=== PATIENT | male | born 1960 | race Caucasian/White ===

== ENCOUNTER 2016-08-27 08:13 | Emergency (ER) | payer OTHER ==
--- NOTE | 2016-08-27 10:03 | DIAGNOSTIC IMAGING REPORT ---
PROCEDURE: CT CERVICAL SPINE W/O CONTRAST INDICATION: TRAUMA/INJURY TECHNIQUE: Axial CT images were obtained through the cervical spine. Coronal and sagittal reformations were created. No comparison. COMPARISON: None. FINDINGS: The craniocervical junction is intact. Degenerative joint space loss, spurring, and subcortical cystic change at the atlantodental interval. The cervical vertebral bodies are normal in height without evidence of fracture. Right-sided disc osteophyte complex at C4 and C5. Uncovertebral joint hypertrophy at the C5-6 level. Severe facet arthropathy, left greater than right at the C6-7 level. Moderate right bony foraminal narrowing at C4-5, and mild left, and severe right foraminal narrowing at C5-6. Mild to moderate left foraminal narrowing at C6-7. The alignment and disk spacing is normal. The central canal is patent. No prevertebral or paravertebral soft-tissue swelling or mass. Patent airway and normal lung apices. IMPRESSION: 1. Intact cervical spine. 2. Chronic-appearing endplate and facet changes as described resulting in multilevel foraminal narrowing, most extensive on the right at C5-6. 3. Findings called to the emergency room. All CT scans at this facility use dose modulation, iterative reconstruction, and/or weight-based dosing when appropriate to reduce radiation dose to as low as reasonably achievable.
--- NOTE | 2016-08-27 10:15 | DIAGNOSTIC IMAGING REPORT ---
PROCEDURE: CT LUMBAR SPINE W/O CONTRAST INDICATION: TRAUMA/INJURY TECHNIQUE: Thin slice axial CT images were obtained through the lumbar spine. Coronal and sagittal reformations were created. COMPARISON: None. FINDINGS: Five lumbar type vertebral bodies are present. No acute or chronic fractures. There is moderate endplate sclerosis, circumferential spurring, and extensive cortical irregularity at the L2-3 disc level, and to a lesser extent at the L5-S1 disc level. There are is mild endplate sclerosis at the L4-5 level. Mild rightward curvature of the lumbar spine with the apex at the L3 level and compensatory endplate spurring along the left. The AP alignment is normal. Mild disc height loss T12-L1 and L1-2. Moderate disc height loss with vacuum phenomenon at L3-4 and L4-5, and moderately severe disc height loss at L2-3 and L5-S1. Moderate facet hypertrophy at L4-5 where there is likely a moderate central canal stenosis. Facet hypertrophy is also present at L3-4 and likely a mild to moderate central canal stenosis. Diffuse circumferential disc osteophyte complex results in a moderate stenosis of the central canal at L3-4. Paraspinal soft tissues are within normal limits. No suspicious density within the spinal canal. Bridging osteophytosis along the superior aspect of the left sacroiliac joint. IMPRESSION: 1. No acute fractures. 2. Chronic endplate, disc, and facet degeneration at multiple levels mainly resulting in multilevel central canal narrowing as described. 3. Findings called to the emergency room.
--- NOTE | 2016-08-27 10:16 | DIAGNOSTIC IMAGING REPORT ---
PROCEDURE: CT HEAD WITHOUT CONTRAST INDICATION: TRAUMA/INJURY TECHNIQUE: Axial CT images were acquired through the head. Coronal and sagittal reformations were created. COMPARISON: None. FINDINGS: No intracranial hemorrhage or extraaxial fluid collections. Ventricles are normal in size, shape and position. There is no mass, mass effect or midline shift. The roberson-white matter differentiation is normal. There is no edema. Mild bifrontal cortical atrophy. The calvarium is intact. The paranasal sinuses and mastoid air cells are normally aerated. The extracranial soft tissues and orbits are normal. IMPRESSION: 1. No CT evidence of acute intracranial process. 2. Mild bifrontal cortical atrophy, slightly advanced for the patient's stated age. 3. Findings discussed with Dr. Townsend at [address] scans at this facility use dose modulation, iterative reconstruction, and/or weight-based dosing when appropriate to reduce radiation dose to as low as reasonably achievable.
--- NOTE | 2016-08-27 10:33 | ED NURSING NOTES ---
Clinical Report - Nurses [facility] [address] [place] [address] 08/27/2016 8:15 [id number] Triage time 08:17. Acuity: LEVEL 4. Chief Complaint: FALL. 08:19 08/27/16. 08:19 08/27/16. Alert. No acute distress. ( Pt fell while at work. Pt states he slipped on newly waxed floors.). SEPSIS SCREEN: Sepsis Screen. Negative (no infection suspected/documented). CHERELLE COMA SCORE: Cherelle Coma Scale: 15- eyes open spontaneously (4); best verbal response- oriented x 4 (5); best motor response- obeys commands (6). --08:27 Earle Crisostomo R.N. 08:18 08/27/16. BP: 144/75. HR: 68. RR: 18. O2 saturation: 97% on room air. Temp: 98.6 F (oral). Pain level now: 09/15. --08:27 Earle Crisostomo R.N. Weight: 130.1 kg stated. Height/Length: 73 inches Per Patient. BMI: 37.8. --08:17 Earle Crisostomo R.N. Medications Crestor Oral (weekly). --08:26 Earle Crisostomo R.N. ASA Oral 81mg , Daily. --08:26 Earle Crisostomo R.N. Medication/allergy information source: the patient and EMS. --08:27 Earle Crisostomo R.N. Allergies No Known Drug Allergy. --08:26 Earle Crisostomo R.N. History Arrived by EMS. Historian: patient. Accompanied by family. Primary physician ([facility]). 08:19 08/27/16. This occurred just prior to arrival. No loss of consciousness. No headache. 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 BP: 128 palp. HR: 84. RR: 16. O2 saturation: 99 % room air. ( Pt c-collared and back boarded at 0800 by EMS). PAST MEDICAL HX: Tetanus status: up-to-date. Immunizations: up-to-date. SOCIAL HX: Never smoker. No alcohol use or drug use. No infectious disease exposure. ABUSE ASSESSMENT: No report of abuse. FALL RISK ASSESSMENT: Fall risk assessment completed. No fall risk identified. NUTRITIONAL RISK ASSESSMENT: The nutritional risk assessment revealed no deficiencies. FUNCTIONAL ASSESSMENT: Functional assessment: no impairments noted. LEARNING NEEDS ASSESSMENT: The learning needs assessment revealed no barriers. SKIN INTEGRITY ASSESSMENT: Skin integrity risk assessment completed. No skin integrity risk identified. --08:27 Earle Crisostomo R.N. PROBLEMS: Laceration. Atrial Fibrillation. Environmental Allergies. Tetanus Status. A-fib. Hypertension. Allergies. --08:27 Earle Crisostomo R.N. Degenerative Joint Disease. --08:37 Earle Crisostomo R.N. ADDITIONAL SURGERIES: Knee Surgery. Shoulder Surgery. --08:27 Earle Crisostomo R.N. Assessment 08:08/27/16. --08:27 Earle Crisostomo R.N. Interventions 08:08/27/16. 08:08/27/16. ID and allergy band on patient. To treatment room. --08:27 Earle Crisostomo R.N. PHYSICAL ASSESSMENT 08:08/27/16. To room via stretcher. GENERAL / NEURO / PSYCH: Alert. Oriented X 4. Appears in pain. RESPIRATORY: Respirations not labored. CVS: Capillary refill less than 2 seconds. SKIN: Skin is warm and dry. BACK: Vertebral point tenderness over the lumbar spine. --08:25 Earle Crisostomo R.N. NURSING PROGRESS NOTES 08:08/27/16. Two patient identifiers checked. Call light placed in reach. Side rails up x 2. Bed placed in lowest position. Brakes of bed on. --08:25 Earle Crisostomo R.N. 08:08/27/16. Patient ready for evaluation- chart flagged and notification provided. --08:25 Earle Crisostomo R.N. 08:28 08/27/16. Pulse oximeter applied. library monitor applied. NIBP monitor applied. --08:28 Earle Crisostomo R.N. 08:34 08/27/16. --08:34 Earle Crisostomo R.N. 08:34 08/27/16. BP: 137/77. HR: 68. RR: 18. O2 saturation: 97% on room air. --08:34 Earle Crisostomo R.N. 08:34 08/27/16. Patient and family informed about reason for wait and about plan of care. --08:35 Earle Crisostomo R.N. 08:35 08/27/16. Patient waiting for CT to be done. --08:35 Earle Crisostomo R.N. 08:51 08/27/16. ( Pts at bedside and work friend, completing L and I paperwork). --08:51 Earle Crisostomo R.N. 08:54 08/27/16. ( C-collar intact, pt undressed). --08:54 Earle Crisostomo R.N. 08:54 08/27/16. Patient transported to radiology by stretcher with tech. --08:54 Earle Crisostomo R.N. 09:12 08/27/16. Patient returned from radiology by stretcher with tech. --09:12 Cathy Terrazas R.N. 09:23 08/27/16. Patient and family informed about reason for wait and about plan of care. --09:23 Earle Crisostomo R.N. 09:23 08/27/16. Patient waiting for radiology results. --09:23 Earle Crisostomo R.N. 09:24 08/27/16. HR: 70. RR: 16. O2 saturation: 99% on room air. Pain level now: 08/15. --09:25 Earle Crisostomo R.N. 09:24 08/27/2016 Ibuprofen PO 600 mg given. Allergies verified and confirmed 5 rights. --09:29 Earle Crisostomo R.N. 09:25 08/27/16. --09:25 Earle Crisostomo R.N. 10:12 08/27/16. ( Pt voided with assistance from ). --10:12 Earle Crisostomo R.N. 10:12 08/27/16. --10:12 Earle Crisostomo R.N. 10:13 08/27/16. --10:13 Earle Crisostomo R.N. 10:12 08/27/16. BP: 119/74. HR: 59. RR: 14. O2 saturation: 96% on room air. Pain level now: 08/15. --10:13 Earle Crisostomo R.N. 10:16 08/27/16. ( Provider at bedside). --10:16 Earle Crisostomo R.N. ( C-collar removed by at 1015). --10:41 Earle Crisostomo R.N. Intake & Output 10:13 08/27/16. Urine: 700 mL, with return of yellow-colored urine. --10:13 Earle Crisostomo R.N. DISPOSITION / DISCHARGE 10:40 08/27/16. Condition at departure: improved. The goals identified in the patient's plan of care were met. No learning barriers present. Discharge instructions provided and reviewed with the patient and spouse. Reviewed warnings. Reviewed medication(s). Treatments reviewed. Patient and spouse verbalized understanding. Written instructions provided in Portuguese. The patient was discharged by the physician. He was discharged home and accompanied by family. He left the Emergency Department ambulatory and via private vehicle. Family member driving. FALL RISK ASSESSMENT: Fall risk assessment completed. No fall risk identified. --10:40 Earle Crisostomo R.N. 10:12 08/27/16. BP: 119/74. HR: 59. RR: 14. O2 saturation: 96% on room air. Pain level now: 08/15. --10:40 Earle Crisostomo R.N. 10:40 08/27/16. --10:40 Earle Crisostomo R.N. 10:40 08/27/16. Pain level now: 07/18. --10:40 Earle Crisostomo R.N. Departure time: 1042. --11:25 Earle Crisostomo R.N. Locked/Released at 08/27/2016 11:26 by Earle Crisostomo R.N.
--- NOTE | 2016-08-27 10:33 | ED ORDER SUMMARY ---
..... Patient: YOAV URENA OrderSheet [facility] VisitID: [id number] [place] [address] 56y, M Registration Date/Time: 08/27/2016 ORDER SHEET Weight: 130.1 kg (stated) Allergies: No Known Drug Allergy GENERAL ORDERS: CT Head wo Cont Urgent (08:27 08/27/2016 Siri ZHANG) (Ack 8:32 KHoerner) (9:11 KHoerner) CT Cervical Spine wo Cont Urgent (08:08/27/2016 Siri ZHANG) (Ack 8:32 KHoerner) (9:11 KHoerner) CT Lumbar Spine wo Cont Urgent (08:08/27/2016 Siri ZHANG) (Ack 8:32 KHoerner) (9:11 KHoerner) MEDICATION ORDERS: Ibuprofen PO 600 mg (NOW) (09:28 08/27/2016 Raulito R.N. verbal order read back to Siri ZHANG) (Ack 9:28 NILDAoarlaura R.N.) (9:29 Raulito R.N.) IV FLUIDS: ORDER SHEET NOTES: [Electronically signed by Prince Townsend Dr. (10:39 08/27/2016)] [Electronically signed by Earle Crisostomo R.N. (11:26 08/27/2016)] [Electronically locked/signed by Earle Crisostomo R.N. (11:08/27/2016)]
--- NOTE | 2016-08-27 10:33 | ED NURSING NOTES ---
Clinical Report - Nurses [facility] [address] [place] [address] 08/27/2016 8:15 [id number] Triage time 08:17. Acuity: LEVEL 4. Chief Complaint: FALL. 08:19 08/27/16. 08:19 08/27/16. Alert. No acute distress. ( Pt fell while at work. Pt states he slipped on newly waxed floors.). SEPSIS SCREEN: Sepsis Screen. Negative (no infection suspected/documented). CHERELLE COMA SCORE: Cherelle Coma Scale: 15- eyes open spontaneously (4); best verbal response- oriented x 4 (5); best motor response- obeys commands (6). --08:27 Earle Crisostomo R.N. 08:18 08/27/16. BP: 144/75. HR: 68. RR: 18. O2 saturation: 97% on room air. Temp: 98.6 F (oral). Pain level now: 09/15. --08:27 Earle Crisostomo R.N. Weight: 130.1 kg stated. Height/Length: 73 inches Per Patient. BMI: 37.8. --08:17 Earle Crisostomo R.N. Medications Crestor Oral (weekly). --08:26 Earle Crisostomo R.N. ASA Oral 81mg , Daily. --08:26 Earle Crisostomo R.N. Medication/allergy information source: the patient and EMS. --08:27 Earle Crisostomo R.N. Allergies No Known Drug Allergy. --08:26 Earle Crisostomo R.N. History Arrived by EMS. Historian: patient. Accompanied by family. Primary physician ([facility]). 08:19 08/27/16. This occurred just prior to arrival. No loss of consciousness. No headache. 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 BP: 128 palp. HR: 84. RR: 16. O2 saturation: 99 % room air. ( Pt c-collared and back boarded at 0800 by EMS). PAST MEDICAL HX: Tetanus status: up-to-date. Immunizations: up-to-date. SOCIAL HX: Never smoker. No alcohol use or drug use. No infectious disease exposure. ABUSE ASSESSMENT: No report of abuse. FALL RISK ASSESSMENT: Fall risk assessment completed. No fall risk identified. NUTRITIONAL RISK ASSESSMENT: The nutritional risk assessment revealed no deficiencies. FUNCTIONAL ASSESSMENT: Functional assessment: no impairments noted. LEARNING NEEDS ASSESSMENT: The learning needs assessment revealed no barriers. SKIN INTEGRITY ASSESSMENT: Skin integrity risk assessment completed. No skin integrity risk identified. --08:27 Earle Crisostomo R.N. PROBLEMS: Laceration. Atrial Fibrillation. Environmental Allergies. Tetanus Status. A-fib. Hypertension. Allergies. --08:27 Earle Crisostomo R.N. Degenerative Joint Disease. --08:37 Earle Crisostomo R.N. ADDITIONAL SURGERIES: Knee Surgery. Shoulder Surgery. --08:27 Earle Crisostomo R.N. Assessment 08:08/27/16. --08:27 Earle Crisostomo R.N. Interventions 08:08/27/16. 08:08/27/16. ID and allergy band on patient. To treatment room. --08:27 Earle Crisostomo R.N. PHYSICAL ASSESSMENT 08:08/27/16. To room via stretcher. GENERAL / NEURO / PSYCH: Alert. Oriented X 4. Appears in pain. RESPIRATORY: Respirations not labored. CVS: Capillary refill less than 2 seconds. SKIN: Skin is warm and dry. BACK: Vertebral point tenderness over the lumbar spine. --08:25 Earle Crisostomo R.N. NURSING PROGRESS NOTES 08:08/27/16. Two patient identifiers checked. Call light placed in reach. Side rails up x 2. Bed placed in lowest position. Brakes of bed on. --08:25 Earle Crisostomo R.N. 08:08/27/16. Patient ready for evaluation- chart flagged and notification provided. --08:25 Earle Crisostomo R.N. 08:28 08/27/16. Pulse oximeter applied. case monitor applied. NIBP monitor applied. --08:28 Earle Crisostomo R.N. 08:34 08/27/16. --08:34 Earle Crisostomo R.N. 08:34 08/27/16. BP: 137/77. HR: 68. RR: 18. O2 saturation: 97% on room air. --08:34 Earle Crisostomo R.N. 08:34 08/27/16. Patient and family informed about reason for wait and about plan of care. --08:35 Earle Crisostomo R.N. 08:35 08/27/16. Patient waiting for CT to be done. --08:35 Earle Crisostomo R.N. 08:51 08/27/16. ( Pts at bedside and work friend, completing L and I paperwork). --08:51 Earle Crisostomo R.N. 08:54 08/27/16. ( C-collar intact, pt undressed). --08:54 Earle Crisostomo R.N. 08:54 08/27/16. Patient transported to radiology by stretcher with tech. --08:54 Earle Crisostomo R.N. 09:12 08/27/16. Patient returned from radiology by stretcher with tech. --09:12 Cathy Terrazas R.N. 09:23 08/27/16. Patient and family informed about reason for wait and about plan of care. --09:23 Earle Crisostomo R.N. 09:23 08/27/16. Patient waiting for radiology results. --09:23 Earle Crisostomo R.N. 09:24 08/27/16. HR: 70. RR: 16. O2 saturation: 99% on room air. Pain level now: 08/15. --09:25 Earle Crisostomo R.N. 09:24 08/27/2016 Ibuprofen PO 600 mg given. Allergies verified and confirmed 5 rights. --09:29 Earle Crisostomo R.N. 09:25 08/27/16. --09:25 Earle Crisostomo R.N. 10:12 08/27/16. ( Pt voided with assistance from ). --10:12 Earle Crisostomo R.N. 10:12 08/27/16. --10:12 Earle Crisostomo R.N. 10:13 08/27/16. --10:13 Earle Crisostomo R.N. 10:12 08/27/16. BP: 119/74. HR: 59. RR: 14. O2 saturation: 96% on room air. Pain level now: 08/15. --10:13 Earle Crisostomo R.N. 10:16 08/27/16. ( Provider at bedside). --10:16 Earle Crisostomo R.N. ( C-collar removed by at 1015). --10:41 Earle Crisostomo R.N. Intake & Output 10:13 08/27/16. Urine: 700 mL, with return of yellow-colored urine. --10:13 Earle Crisostomo R.N. DISPOSITION / DISCHARGE 10:40 08/27/16. Condition at departure: improved. The goals identified in the patient's plan of care were met. No learning barriers present. Discharge instructions provided and reviewed with the patient and spouse. Reviewed warnings. Reviewed medication(s). Treatments reviewed. Patient and spouse verbalized understanding. Written instructions provided in Belarusian. The patient was discharged by the physician. He was discharged home and accompanied by family. He left the Emergency Department ambulatory and via private vehicle. Family member driving. FALL RISK ASSESSMENT: Fall risk assessment completed. No fall risk identified. --10:40 Earle Crisostomo R.N. 10:12 08/27/16. BP: 119/74. HR: 59. RR: 14. O2 saturation: 96% on room air. Pain level now: 08/15. --10:40 Earle Crisostomo R.N. 10:40 08/27/16. --10:40 Earle Crisostomo R.N. 10:40 08/27/16. Pain level now: 07/18. --10:40 Earle Crisostomo R.N. Departure time: 1042. --11:25 Earle Crisostomo R.N. Locked/Released at 08/27/2016 11:26 by Earle Crisostomo R.N.
--- NOTE | 2016-08-27 10:33 | ED CLINICAL REPORT ---
Clinical Report - Physicians/Mid Levels [facility] [address] [place] [address] 08/27/2016 8:15 Patient: YOAV URENA Time Seen: 08:17. Arrived- By ambulance. Historian- patient and EMS personnel. HISTORY OF PRESENT ILLNESS Chief Complaint: FALL. The injury occurred just prior to arrival. Occurred at home. Fell. The patient complains of moderate pain. The patient sustained a blow to the head and complains of neck pain. No loss of consciousness. REVIEW OF SYSTEMS No numbness, dizziness, loss of vision, nausea or laceration. No alteration in mental status, numbness or weakness. He has had back pain, neck pain and a headache and sustained a head injury. No difficulty walking. All systems otherwise negative, except as recorded above. PAST HISTORY Laceration. Atrial Fibrillation. Environmental Allergies. Tetanus Status. A-fib. Hypertension. Allergies. int Disease. SURGERIES: Knee Surgery. Shoulder Surgery. SOCIAL HISTORY Never smoker. No alcohol use or drug use. ADDITIONAL NOTES The nursing notes have been reviewed. PHYSICAL EXAM Vital Signs: Have been reviewed. Appearance: Patient on a backboard. C-collar in place. Alert. Oriented X3. No acute distress. Eyes: Pupils equal, round and reactive to light. EOM intact. ENT: No dental injury. Pharynx normal. Neck: Mild vertebral tenderness of the lower cervical spine. No palpable step-off. CVS: Heart sounds normal. Respiratory: Breath sounds normal. Chest nontender. Abdomen: No visible injury. Soft and nontender. Bowel sounds normal. No organomegaly. No mass. Back: Vertebral point tenderness over the mid lumbar spine. Tenderness in the lumbar area. Skin: Skin intact. Skin warm and dry. Extremities: Normal inspection. Pelvis stable. Extremities atraumatic. No lower extremity edema. Neuro: No motor deficit. No sensory deficit. LABS, X-RAYS, AND EKG CT C-Spine: (1. Intact cervical spine. 2. Chronic-appearing endplate and facet changes as described resulting in multilevel foraminal narrowing, most extensive on the right at C5-6.). The study was independently viewed by me, interpreted by the radiologist and discussed with the radiologist. Prior studies were not available for comparison. Interpretation time: 10:31. CT Head: (1. No CT evidence of acute intracranial process. 2. Mild bifrontal cortical atrophy, slightly advanced for the patient's stated age.). Head CT performed without contrast. The study was independently viewed by me, interpreted by the radiologist and discussed with the radiologist. Prior studies were not available for comparison. Interpretation time: 10:31. CT L-Spine: Note- 1. No acute fractures. 2. Chronic endplate, disc, and facet degeneration at multiple levels mainly resulting in multilevel central canal narrowing as described. The study was independently viewed by me, interpreted by the radiologist and discussed with the radiologist. Prior studies were not available for comparison. Interpretation time: 10:32. PROGRESS AND PROCEDURES C-Spine Status: Cervical spine cleared by CT scan. Course of Care: 09:16 08/27/16. the case was discussed with Dr. Townsend at change of shift. Reviewed the patient's history and physical examination findings. He will follow up on the results of the patient's imaging studies and will arrange an appropriate disposition for him. - MW. Patient is stable. Patient/family counseled. Disposition: Discharged home in good and improved condition. Condition: good. CLINICAL IMPRESSION Fall on same level by slipping. Acute cervical strain. Acute and chronic traumatic lumbar back pain associated with degenerative joint disease of the lumbar spine. No radiculopathy or neurological deficit. Single contusion to the head.No hematoma. INSTRUCTIONS Apply ice for 20 minutes five times a day. Don't apply ice directly to skin. Rest: No strenuous activity. Bed rest for 2 days. Your Current Medications: CONTINUE TAKING THE FOLLOWING MEDICATIONS: ASA Oral : 81mg Daily. Crestor Oral : weekly. Follow-up: Follow up with your doctor in about two days. Call for an appointment. Screening today revealed the patient's blood pressure to be in the normal range. (Electronically signed by Prince Townsend Dr. 08/27/2016 10:39)
--- NOTE | 2016-08-27 10:33 | ED ORDER SUMMARY ---
..... Patient: YOAV URENA OrderSheet [facility] VisitID: [id number] [place] [address] 56y, M Registration Date/Time: 08/27/2016 ORDER SHEET Weight: 130.1 kg (stated) Allergies: No Known Drug Allergy GENERAL ORDERS: CT Head wo Cont Urgent (08:27 08/27/2016 Siri ZHANG) (Ack 8:32 KHoerner) (9:11 KHoerner) CT Cervical Spine wo Cont Urgent (08:08/27/2016 Siri ZHANG) (Ack 8:32 KHoerner) (9:11 KHoerner) CT Lumbar Spine wo Cont Urgent (08:08/27/2016 Siri ZHANG) (Ack 8:32 KHoerner) (9:11 KHoerner) MEDICATION ORDERS: Ibuprofen PO 600 mg (NOW) (09:28 08/27/2016 Raulito R.N. verbal order read back to Siri ZHANG) (Ack 9:28 NILDAoarlaura R.N.) (9:29 Raulito R.N.) IV FLUIDS: ORDER SHEET NOTES: [Electronically signed by Prince Townsend Dr. (10:39 08/27/2016)] [Electronically signed by Earle Crisostomo R.N. (11:26 08/27/2016)] [Electronically locked/signed by Earle Crisostomo R.N. (11:08/27/2016)]
--- NOTE | 2016-08-27 11:26 | ED DISCHARGE INSTRUCTIONS ---
Patient: YOAV URENA General Instructions [facility] VisitID: [id number] [place] [address] 56y, M Registration Date/Time: 08/27/2016 Fall on same level by slipping. Acute cervical strain. Acute and chronic traumatic lumbar back pain associated with degenerative joint disease of the lumbar spine. No radiculopathy or neurological deficit. Single contusion to the head.No hematoma. INSTRUCTIONS Apply ice for 20 minutes five times a day. Don't apply ice directly to skin. Rest: No strenuous activity. Bed rest for 2 days. Your Current Medications: CONTINUE TAKING THE FOLLOWING MEDICATIONS: ASA Oral : 81mg Daily. Crestor Oral : weekly. Follow-up: Follow up with your doctor in about two days. Call for an appointment. Screening today revealed the patient's blood pressure to be in the normal range. ADDITIONAL INFORMATION Mechanical Fall You have had a fall today. It appears that the cause is mechanical. That means that you slipped, tripped or lost your balance. If your fall had been due to fainting or a seizure, further tests would be required. Home Care: Rest today and resume your normal activities when you are feeling back to normal. If you were injured during the fall, follow the advice from your doctor regarding care of your injury. You may use acetaminophen (Tylenol) or ibuprofen (Motrin, Advil) to control pain, unless another pain medicine was prescribed. [NOTE: If you have chronic liver or kidney disease or ever had a stomach ulcer or GI bleeding, talk with your doctor before using these medicines.] Fall Prevention: Was there anything that caused your fall that can be fixed, removed, or replaced? Make your home safe by keeping walkways clear of objects you may trip over. Use non-slip pads under rugs. Do not walk in poorly lit areas. Do not stand on chairs or wobbly ladders. Use caution when reaching overhead or looking upward. This position can cause a loss of balance. Be sure your shoes fit properly, have non-slip bottoms and are in good condition. Be cautious when going up and down curbs, and walking on uneven sidewalks. If your balance is poor, consider using a cane or walker. Stay as active as you can. Balance, flexibility, strength, and endurance all come from exercise. They all play a role in preventing falls. Follow Up with your doctor or as advised by our staff. Get Prompt Medical Attention if any of the following occur: Repeated mechanical falls, or unexplained falls Dizziness, fainting or seizure Severe headache Chest pain or shortness of breath Palpitations (very rapid or very slow or irregular heartbeat) Blood in vomit, stools (black or red color) Weakness of an arm or leg or one side of the face Difficulty with speech or vision Neck Sprain Or Strain A sudden force that causes turning or bending of the neck (such as in a car accident) can stretch or tear muscles (strain) and ligaments (sprain) and cause neck pain. Sometimes neck pain occurs after a simple awkward movement. In either case, muscle spasm is commonly present and contributes to the pain. Unless you had a forceful physical injury (for example, a car accident or fall), X-rays are usually not ordered for the initial evaluation of neck pain. If pain continues and dose not respond to medical treatment, X-rays and other tests may be performed at a later time. Home care The following guidelines will help you care for your injury at home: You may feel more soreness and spasm the first few days after the injury. Reduce your activity level until symptoms begin to improve. When lying down, use a comfortable pillow that supports the head and keeps the spine in a neutral position. The position of the head should not be tilted forward or backward. Use ice packs (ice in a plastic bag, wrapped in a towel) to treat acute pain. Apply for 20 minutes every 24 hours during the first two days. Then, begin local heat (hot shower, hot bath or heating pad) andmassageto reduce muscle spasm. Some patients feel best alternating hot and cold treatments, or just staying with one method only. Do what feels the best to you and gives the most relief. You may use acetaminophen or ibuprofen to control pain, unless another pain medicine was prescribed.If you have chronic liver or kidney disease or ever had a stomach ulcer or GI bleeding, talk with your doctor before using these medicines. Follow-up care Follow up with your physician or this facility if your symptoms do not show signs of improvement. Physical therapy may be needed. If you had X-rays today, they didnt show any broken bones, breaks, or fractures. Sometimes fractures dont show up on the first X-ray. Bruises and sprains can sometimes hurt as much as a fracture. These injuries can take time to heal completely. If your symptoms dont improve or they get worse, talk with your doctor. You may need a repeat X-ray. When to seek medical care Get prompt medical attention if any of the following occur: Pain becomes worse or spreads into your arms Weakness or numbness in one or both arms Back Pain [Acute Or Chronic] Back pain is usually caused by an injury to the muscles or ligaments of the spine. Sometimes the disks that separate each bone in the spine may bulge and cause pain by pressing on a nearby nerve. Back pain may also appear after a sudden twisting/bending force (such as in a car accident), after a simple awkward movement, or lifting something heavy with poor body positioning. In either case, muscle spasm is often present and adds to the pain. Acute back pain usually gets better in one to two weeks. Back pain related to disk disease, arthritis in the spinal joints or spinal stenosis (narrowing of the spinal canal) can become chronic and last for months or years. Unless you had a physical injury (for example, a car accident or fall) X-rays are usually not ordered for the initial evaluation of back pain. If pain continues and does not respond to medical treatment, x-rays and other tests may be performed at a later time. Home Care: You may need to stay in bed the first few days. But, as soon as possible, begin sitting or walking to avoid problems with prolonged bed rest (muscle weakness, worsening back stiffness and pain, blood clots in the legs). When in bed, try to find a position of comfort. A firm mattress is best. Try lying flat on your back with pillows under your knees. You can also try lying on your side with your knees bent up towards your chest and a pillow between your knees. Avoid prolonged sitting. This puts more stress on the lower back than standing or walking. During the first two days after injury, apply an ICE PACK to the painful area for 20 minutes every 2-4 hours. This will reduce swelling and pain. HEAT (hot shower, hot bath or heating pad) works well for muscle spasm. You can start with ice, then switch to heat after two days. Some patients feel best alternating ice and heat treatments. Use the one method that feels the best to you. You may use acetaminophen (Tylenol) or ibuprofen (Motrin, Advil) to control pain, unless another pain medicine was prescribed. [NOTE: If you have chronic liver or kidney disease or ever had a stomach ulcer or GI bleeding, talk with your doctor before using these medicines.] Be aware of safe lifting methods and do not lift anything over 15 pounds until all the pain is gone. Follow Up with your doctor or this facility if your symptoms do not start to improve after one week. Physical therapy may be needed. [NOTE: If X-rays were taken, they will be reviewed by a radiologist. You will be notified of any new findings that may affect your care.] Get Prompt Medical Attention if any of the following occur: Pain becomes worse or spreads to your legs Weakness or numbness in one or both legs Loss of bowel or bladder control Numbness in the groin or genital area Degenerative Disk Disease Spinal disks are gel-filled cushions between the bones of the spine (vertebrae). The disks act like shock absorbers. Over time, the disks may break down. This disorder is called degenerative disk disease (DDD). DDD can affect the neck or back. It is one of the most common causes of low back pain. It is the leading cause of disability in people under age 45 in the [place]. The pain usually remains localized to the lower back or neck. Muscle spasm is often present and adds to the pain. Disk degeneration is a natural part of aging, although it does not cause pain in most persons. It may also occur as a result of repeated minor injuries due to daily activities, sports, or accidents. It may lead to osteoarthritis of the spine. Back pain related to disk disease may come and go or become chronic and last for months or years. If the disk bulges or ruptures (also called slipped disk or herniated disk), it can put pressure on a nearby spinal nerve and cause neck or back pain that spreads down one arm or leg. X-rays or MRI (magnetic resonance imaging) scan may aid in the diagnosis. For acute pain, treatment consists of anti-inflammatory drugs, muscle relaxants, rest, ice, or heat. Narcotic pain medicines may be needed for short-term treatment of sudden worsening of pain. Due to their addictive potential, narcotics are not advised for long-term pain management. Other types of medicines are preferred. Surgery is usually not used to treat this condition unless there is a complication (such as nerve root compression). Home Care: FOR NECK PAIN: Use a comfortable pillow that supports the head and keeps the spine in a neutral position. The head should not be tilted forward or backward. FOR BACK PAIN: Avoid prolonged sitting. This puts more stress on the lower back than standing or walking. Establishing a regular exercise program to strengthen the supporting muscles of the spine will make it easier to live with DDD. During the first2 days after a flare-up of your pain, apply anice pack to the painful area for 20 minutes every 2-4 hours. This will reduce swelling and pain.Heat (hot shower, hot bath, or heating pad) works well for muscle spasm. You can start with ice, then switch to heat after2 days. Some patients feel best alternating ice and heat treatments. Use the method that feelsbest to you. You may use acetaminophen (Tylenol) or ibuprofen (Motrin, Advil) to control pain, unless another pain medicine was prescribed. [NOTE: If you have chronic liver or kidney disease or ever had a stomach ulcer or GI bleeding, talk with your doctor before using these medicines.] Follow Up with your physician, or as directed by our staff. [NOTE: If x-rays, a CT scan or an MRI scan were taken, they will be reviewed by a radiologist. You will be notified of any new findings that may affect your care.] Return Promptly or contact your doctor if any of the following occur: Increasing back pain New weakness, numbness, or pain in one or both arms or legs Foot drop (foot drags when you walk) Loss of bowel or bladder control Numbness or tingling in the buttock or groin area Unexplained fever over 100.4F (38.0C) Contusion,Soft Tissue You have a CONTUSION, which is a bruise with swelling and some bleeding under the skin. There are no broken bones. This injury takes a few days to a few weeks to heal. Home Care: 1) Keep the injured part elevated to reduce pain and swelling. This is especially important during the first 48 hours. 2) Make an ice pack (ice cubes in a plastic bag, wrapped in a towel) and apply for 20 minutes every 1-2 hours the first day. Continue this 3-4 times a day until the pain and swelling goes away. 3) You may use acetaminophen (Tylenol) or ibuprofen (Motrin, Advil) to control pain, unless another pain medicine was prescribed. [ NOTE : If you have chronic liver or kidney disease or ever had a stomach ulcer or GI bleeding, talk with your doctor before using these medicines.] Follow Up with your doctor or this facility if you are not improving within the next THREE days. [NOTE: If X-rays were taken, they will be reviewed by a radiologist. You will be notified of any new findings that may affect your care.] Get Prompt Medical Attention if any of the following occur: -- Pain or swelling increases -- Injured arm or leg becomes cold, blue, numb or tingly -- Redness, warmth or drainage from the skin You have been given the following additional information: Fall, Mechanical Neck Sprain/Strain Back Pain (Acute Or Chronic) Degenerative Disk Disease Contusion, Soft Tissue Rest: No strenuous activity. Bed rest for 2 days. (Electronically signed by Prince Townsend Dr. 08/27/2016 10:39)
--- NOTE | 2016-08-27 11:27 | ED MED RECONCILIATION SUMMARY ---
Patient: YOAV URENA Medication Reconciliation Report [facility] VisitID: [id number] [address] [place] [address] 56y, M Registration Date/Time: 08/27/2016 Weight: 130.1 kg Height/Length: 73 in. BMI: 37.8 ALLERGIES: No Known Drug Allergy The patient's Home Medications are listed below: CONTINUE TAKING THE FOLLOWING MEDICATIONS: ASA Oral 81mg , Daily Crestor Oral, weekly The source(s) of the original Home Medication information: patient EMS The following Medications were given to the patient in the Emergency Department: Ibuprofen [PO] PO 600 mg, administered: 08/27/2016 9:24:00 AM The following Medications were prescribed to the patient: None.
--- NOTE | 2016-08-27 11:27 | ED MAR SUMMARY ---
..... Medication Administration Record [facility] [address] [place] [address] Patient: YOAV URENA Visit ID: [id number] 56y, M Weight: 130.1 kg Height/Length: 73 in BMI: 37.8 ALLERGIES: No Known Drug Allergy Given 09:24 08/27/2016 Earle Crisostomo R.N. Medication Administered: IBUPROFEN [PO], Dose: 600 mg PO. Medication Ordered: Ibuprofen PO 600 mg (NOW).
--- NOTE | 2016-08-27 11:27 | ED MED RECONCILIATION SUMMARY ---
Patient: YOAV URENA Medication Reconciliation Report [facility] VisitID: [id number] [address] [place] [address] 56y, M Registration Date/Time: 08/27/2016 Weight: 130.1 kg Height/Length: 73 in. BMI: 37.8 ALLERGIES: No Known Drug Allergy The patient's Home Medications are listed below: CONTINUE TAKING THE FOLLOWING MEDICATIONS: ASA Oral 81mg , Daily Crestor Oral, weekly The source(s) of the original Home Medication information: patient EMS The following Medications were given to the patient in the Emergency Department: Ibuprofen [PO] PO 600 mg, administered: 08/27/2016 9:24:00 AM The following Medications were prescribed to the patient: None.
--- NOTE | 2016-08-27 11:27 | ED MAR SUMMARY ---
..... Medication Administration Record [facility] [address] [place] [address] Patient: YOAV URENA Visit ID: [id number] 56y, M Weight: 130.1 kg Height/Length: 73 in BMI: 37.8 ALLERGIES: No Known Drug Allergy Given 09:24 08/27/2016 Earle Crisostomo R.N. Medication Administered: IBUPROFEN [PO], Dose: 600 mg PO. Medication Ordered: Ibuprofen PO 600 mg (NOW).
== END 2016-08-27 10:42 | disposition home or self-care (01) ==
LOC: ED SRH 08:13
DX: S16.1XXA Strain of muscle, fascia and tendon at neck level, initial encounter (principal); S39.012A Strain of muscle, fascia and tendon of lower back, initial encounter; S00.93XA Contusion of unspecified part of head, initial encounter; M48.36 Traumatic spondylopathy, lumbar region; W01.0XXA Fall on same level from slipping, tripping and stumbling without subsequent striking against object, initial encounter; Y92.009 Unspecified place in unspecified non-institutional (private) residence as the place of occurrence of the external cause; Y93.9 Activity, unspecified; Y99.9 Unspecified external cause status; I10 Essential (primary) hypertension